=== PATIENT | female | born 1950 | race Caucasian/White ===

== ENCOUNTER 2020-11-20 00:35 | Inpatient (IN) | payer MEDICARE, OTHER ==
[~2020-11-20] VITALS: Ht 162.6 cm; Wt 72.1 kg
[~2020-11-20 00:35] MED LIST: BACTRIM DS TAB1 EACH PO; BENZONATATE200 MG PO; COLACE 100MG C100 MG PO; ECOTRIN81 MG PO; FISH OIL 1,0001 EAC3 PO; FLUVOXAMINE MA100 MG PO; GLUCOPHAGE 500500 MG PO; HABITROL 14 MG P1 EA TD; HABITROL 21 MG P1 EA TD; IMDUR ER TAB 3030 MG PO; IPRAT-ALBUT 0.5-3 ML INH; KLONOPIN TAB 00.5 MG PO; LEVAQUIN750 MG PO; LIPITOR TAB 2020 MG PO; LUVOX TAB 100100 MG PO; MEDROL DOSEPAK 24 MG PO; NORVASC 5 MG TAB5 MG PO; PHENERGAN 12.12.5 M1 PO; PRAVACHOL40 MG PO; TESSALON PERLE100 MG PO; TIROSINT50 MCG PO; TRICOR145 MG PO; ZANTAC 150 MG150 MG PO
[2020-11-20 02:13] LABS: RED BLOOD COUNT 4.47 M/UL (4.00-5.10); WHITE BLOOD COUNT 4.7 K/UL (4.5-11.0)
[2020-11-20 02:32] LABS: BUN/CREATININE RATIO 18 (0-10)
[2020-11-20] MEDS ORDERED: SEROQUEL100 MG PO (05:46)
[2020-11-20] MEDS ORDERED: INDERAL TAB 2020 MG PO (13:17)
[2020-11-20] MEDS ORDERED: DOXYCYCLINE HY100 MG PO (13:18)
[2020-11-20] MEDS ORDERED: ASPIRIN EC81 MG PO (13:26)
[2020-11-20] MEDS ORDERED: MULTI-VITAMIN1 EACH PO (13:26)
[2020-11-20] MEDS ORDERED: VITAMIN D325 MC6 PO (13:27)
[2020-11-20] MEDS ORDERED: FENOFIBRATE160 MG PO (13:27)
[2020-11-20] MEDS ORDERED: KLONOPIN1 MG PO (13:29)
[2020-11-21 06:07] LABS: HEMOGLOBIN 12.9 gm/dl (12.3-15.3); RED BLOOD COUNT 4.14 M/UL (4.00-5.10)
[2020-11-22] MEDS ORDERED: NICOTINE PATCH1 EAC1 TD (11:01)
[2020-11-22] MEDS ORDERED: LEVOFLOXACIN500 MG PO (11:01)
[2020-11-22] MEDS ORDERED: SYMBICORT 16010.2 GM INH (11:01)
[2020-11-22] MEDS ORDERED: MEDROL4 MG PO (11:03)
--- NOTE | 2020-11-22 12:45 | NUR ---
INSTRUCTED PATIENT STOP SMOKING KEEP FOLLOW UP APPOINTMENT. EXPLAINED DIET FOR COPD EXACERBATION AND EXERCISE. INSTRUCTED STOP DOXY AND START LEVAQUIN. VERBALIZED UNDERSTANDING. SONAL BOWENS R.N.
== END 2020-11-22 14:28 | disposition home or self-care (01) | DRG 189 ==
LOC: ER1 00:35 → M/S 07:50 → CDU 07:50 → M/S 16:19
PROVIDERS: Internal Medicine; Physician Assistant; ADMIT Internal Medicine Infectious Disease
DX: J96.01 Acute respiratory failure with hypoxia (principal); J44.0 Chronic obstructive pulmonary disease with (acute) lower respiratory infection; J44.1 Chronic obstructive pulmonary disease with (acute) exacerbation; J20.9 Acute bronchitis, unspecified; F17.210 Nicotine dependence, cigarettes, uncomplicated; K59.00 Constipation, unspecified; E78.5 Hyperlipidemia, unspecified; I10 Essential (primary) hypertension; E03.9 Hypothyroidism, unspecified; F41.9 Anxiety disorder, unspecified; K21.9 Gastro-esophageal reflux disease without esophagitis; Z86.718 Personal history of other venous thrombosis and embolism; Z90.49 Acquired absence of other specified parts of digestive tract; Z86.16 Personal history of COVID-19; Z90.710 Acquired absence of both cervix and uterus; Z83.3 Family history of diabetes mellitus; Z82.49 Family history of ischemic heart disease and other diseases of the circulatory system; Z88.5 Allergy status to narcotic agent; Z88.0 Allergy status to penicillin; Z79.84 Long term (current) use of oral hypoglycemic drugs; Z79.899 Other long term (current) drug therapy; Z79.82 Long term (current) use of aspirin
CPT/HCPCS: 0240U; 36415; 36600; 71045; 71275; 80048; 80053; 82550; 82553; 82803; 82962; 83735; 83874; 83880; 84443; 84484; 85025; 85379; 85610; 85730; 87040; 93005; 94640; 94664; 94760; 96374; 96375; 99285; J1100; J1650; J2920; Q9967

== ENCOUNTER 2021-03-25 11:31 | Emergency (ER) | payer MEDICARE, OTHER ==
[~2021-03-25 11:31] MED LIST changes: +ASPIRIN EC81 MG PO; +DOXYCYCLINE HY100 MG PO; +FENOFIBRATE160 MG PO; +INDERAL TAB 2020 MG PO; +KLONOPIN1 MG PO; +LEVOFLOXACIN500 MG PO; +MEDROL4 MG PO; +MULTI-VITAMIN1 EACH PO; +NICOTINE PATCH1 EAC1 TD; +SEROQUEL100 MG PO; +SYMBICORT 16010.2 GM INH; +VITAMIN D325 MC6 PO
[2021-03-25 13:02] LABS: HEMOGLOBIN 13.9 gm/dl (12.3-15.3); RED BLOOD COUNT 4.49 M/UL (4.00-5.10); WHITE BLOOD COUNT 4.4 K/UL (4.5-11.0)
[2021-03-25] MEDS ORDERED: MIRALAX17 GM PO (16:11)
[2021-03-25] MEDS ORDERED: REGLAN10 MG PO (16:11)
== END 2021-03-25 17:10 | disposition home or self-care (01) ==
LOC: ER1 11:31
PROVIDERS: Physician Assistant Medical
DX: R10.32 Left lower quadrant pain (principal); R11.0 Nausea; E11.9 Type 2 diabetes mellitus without complications; I10 Essential (primary) hypertension; J44.9 Chronic obstructive pulmonary disease, unspecified; F17.210 Nicotine dependence, cigarettes, uncomplicated; Z90.49 Acquired absence of other specified parts of digestive tract; Z90.710 Acquired absence of both cervix and uterus; Z88.5 Allergy status to narcotic agent; Z88.0 Allergy status to penicillin
CPT/HCPCS: 80053; 81001; 83605; 83690; 85025; 85652; 86140; 96374; 99284; J2405; J7030; Q9967

== ENCOUNTER 2021-06-12 17:17 | Emergency (ER) | payer MEDICARE, OTHER ==
[~2021-06-12 17:17] MED LIST changes: +MIRALAX17 GM PO; +REGLAN10 MG PO
[2021-06-12 18:50] LABS: HEMOGLOBIN 13.9 gm/dl (12.3-15.3); RED BLOOD COUNT 4.49 M/UL (4.00-5.10); WHITE BLOOD COUNT 6.6 K/UL (4.5-11.0)
[2021-06-12 19:13] LABS: BUN/CREATININE RATIO 11 (0-10)
[2021-06-12] MEDS ORDERED: PROTONIX40 MG PO (21:24)
== END 2021-06-12 22:01 | disposition home or self-care (01) ==
LOC: ER1 17:17
PROVIDERS: Physician Assistant
DX: K92.2 Gastrointestinal hemorrhage, unspecified (principal); E78.5 Hyperlipidemia, unspecified; R10.9 Unspecified abdominal pain; K21.9 Gastro-esophageal reflux disease without esophagitis; J44.9 Chronic obstructive pulmonary disease, unspecified; E03.9 Hypothyroidism, unspecified; F17.210 Nicotine dependence, cigarettes, uncomplicated; Z88.0 Allergy status to penicillin; Z20.822 Contact with and (suspected) exposure to COVID-19; Z79.82 Long term (current) use of aspirin
CPT/HCPCS: 80053; 81001; 82270; 83690; 85025; 99284; Q9967; U0002